=== PATIENT | male | born 1980 | race Caucasian/White ===

== ENCOUNTER 2024-11-17 19:51 | Emergency (ER) | payer SELFPAY ==
[2024-11-17 19:53] VITALS: BP 142/93
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
[2024-11-17] MEDS: BACITRACIN OINTMENT 1 APPLIC TOPICAL (22:55)
== END 2024-11-17 23:20 | disposition home or self-care (01) ==
LOC: EMR 19:51
PROVIDERS: EMERGENCY PHYSICIAN Emergency Medicine; FAMILY PHYSICIAN Family Medicine Geriatric Medicine
DX: T22.211A Burn of second degree of right forearm, initial encounter (principal); X12.XXXA Contact with other hot fluids, initial encounter
CPT/HCPCS: 99282; 16020